=== PATIENT | female | born 1965 | race Hispanic/Latino ===

== ENCOUNTER 2023-10-21 06:47 | Day surgery (SDC) | payer OTHER ==
[2023-10-15 10:44] LABS: BASOPHILS # (AUTO) 0.03 K/uL (0.00-0.20); BASOPHILS % (AUTO) 0.5 % (0.0-5.0); EOSINOPHILS % (AUTO) 1.6 % (0.0-8.0); HEMATOCRIT 38.4 % (36-48); IMMATURE GRANULOCYTE ABSOLUTE 0.01 K/uL (0-1); LYMPHOCYTES # (AUTO) 1.6 K/uL (1.0-4.8); LYMPHOCYTES % (AUTO) 25.8 % (21.0-51.0); MEAN CORPUSCULAR HEMOGLOBIN 31.9 pg (27.0-33.0); MEAN CORPUSCULAR HGB CONC 33.6 g/dL (32.0-36.0); MEAN CORPUSCULAR VOLUME 94.8 fL (79-99); MONOCYTES # (AUTO) 0.3 K/uL (0.1-1.0); MONOCYTES % (AUTO) 4.2 % (3.0-13.0); NEUTROPHILS # (AUTO) 4.2 K/uL (1.8-7.7); NEUTROPHILS % (AUTO) 67.7 % (40.0-77.0); PLATELET COUNT (AUTO) 166 K/uL (130-400); RED BLOOD CELL COUNT(AUTO) 4.05 MIL/uL (4.00-5.50); RED CELL DISTRIBUTION WIDTH 12.5 % (11.0-15.5); WHITE BLOOD COUNT (AUTO) 6.1 K/uL (4.8-10.8)
[2023-10-15 10:53] LABS: CREATININE 0.7 mg/dL (0.5-1.0); POTASSIUM 4.6 mmol/L (3.5-5.1)
[2023-10-15 11:00] VITALS: BP 124/61; PULSE 65; RESP 16
[2023-10-15 13:52] LABS: APPEARANCE,URINE CLEAR (CLEAR); BILIRUBIN,URINE NEGATIVE (NEGATIVE); COLOR,URINE YELLOW (YELLOW); GLUCOSE, URINE (UA) NEGATIVE (NEGATIVE); KETONES,URINE NEGATIVE (NEGATIVE); LEUKOCYTE ESTERASE ,URINE 500 Leu/uL (NEGATIVE); NITRATE,URINE NEGATIVE (NEGATIVE); OCCULT BLOOD,URINE NEGATIVE (NEGATIVE); PROTEIN,URINE NEGATIVE (NEGATIVE); UROBILINOGEN,URINE 0.2 mg/dL (0.2-1.0)
[2023-10-15 13:53] LABS: ADD UA MICROSCOPIC YES
[2023-10-15 13:54] LABS: BACTERIA,URINE MANY /HPF (None Seen); MUCUS,URINE RARE LPF (None Seen); SQUAMOUS EPITHELIAL CELL,UR FEW /HPF (0-2)
[~2023-10-21] VITALS: Ht 165.1 cm; Wt 105.2 kg
[2023-10-21] VITALS (17 sets, daily range): BP systolic 121–149; BP diastolic 60–79; PULSE 49–69; RESP 15–19
[~2023-10-21 06:47] MED LIST: FISH1CAP63 PO; LOSA50TA64 PO; MULT-1258 PO
[2023-10-21] MEDS: LACTATED RINGERS 1000ML 1,000 ML IV ONE (07:37)
[2023-10-21] MEDS: CEFTRIAXONE 1G VIAL ONE (07:37)
[2023-10-21] MEDS ORDERED: LEVO750T68 PO (07:39)
[2023-10-21] MEDS ORDERED: LIDOCAINE PF 100MG/5ML (2%) SYRINGE 5ML ONE (07:51)
[2023-10-21] MEDS ORDERED: ONDANSETRON 4MG INJ ONE (07:51)
[2023-10-21] MEDS ORDERED: ROCURONIUM BROMIDE 10MG/1ML 5ML VL ONE (07:51)
[2023-10-21] MEDS ORDERED: PROPOFOL 10 MG/ML 20ML VIAL IV ONE (07:52)
[2023-10-21] MEDS ORDERED: FENTANYL CITRATE PF 50 MCG/1 ML 2ML VIAL ONE ×2 (07:52→09:08)
[2023-10-21] MEDS ORDERED: MIDAZOLAM HCL 1 MG/ML 2ML VIAL ONE (07:52)
[2023-10-21] MEDS ORDERED: KETAMINE 50MG/ML SYRINGE 50 MG/ML DISP.SYRIN ONE (08:00)
[2023-10-21] MEDS: CEFTRIAXONE 1G VIAL IVPB ONE (08:16)
[2023-10-21] MEDS ORDERED: DEXAMETHASONE SOD PHOSPHATE 10MG/ML 1ML VIAL ONE (09:06)
[2023-10-21] MEDS ORDERED: GLYCOPYRROLATE 0.2 MG/ML 5 ML VIAL ONE (09:06)
[2023-10-21] MEDS ORDERED: NEOSTIGMINE METHYLSULFATE 1MG/ML IV ONE (09:06)
[2023-10-21] MEDS ORDERED: KETOROLAC 30MG VIAL (30MG/ML) ONE (09:07)
[2023-10-21] MEDS ORDERED: IOHEXOL-350 50ML VIAL IV ONE (09:11)
== END 2023-10-21 10:45 | disposition home or self-care (01) ==
LOC: DAH 06:47
PROVIDERS: ATTEND Urology
DX: N20.1 Calculus of ureter (principal); I10 Essential (primary) hypertension; E66.01 Morbid (severe) obesity due to excess calories; Z88.0 Allergy status to penicillin
CPT/HCPCS: 80048; 84703 ×2; 85025; 87086; 81001; 36415 ×2; 74018; 71045; 93005; 52332; 52351; 74420; A6260; A4663; J7030; A4354; C1758; C2617; J7120; J3010 ×2; J1100; J3490 ×2; J2001; J0696 ×2; J2250; J2704; J2405; J1885; J2710; Q9967; A4358; A4930; A4215; A4223; A4213; A4222; A4221; C1769; A4600

== ENCOUNTER 2023-11-04 06:45 | Day surgery (SDC) | payer OTHER ==
[2023-11-02 09:30] VITALS: BP 136/66; PULSE 67; RESP 16
[2023-11-02 09:36] LABS: BASOPHILS # (AUTO) 0.03 K/uL (0.00-0.20); BASOPHILS % (AUTO) 0.5 % (0.0-5.0); EOSINOPHILS # (AUTO) 0.23 K/uL (0.00-0.70); EOSINOPHILS % (AUTO) 3.9 % (0.0-8.0); HEMATOCRIT 36.7 % (36-48); IMMATURE GRANULOCYTE ABSOLUTE 0.02 K/uL (0-1); LYMPHOCYTES # (AUTO) 1.9 K/uL (1.0-4.8); LYMPHOCYTES % (AUTO) 31.8 % (21.0-51.0); MEAN CORPUSCULAR HEMOGLOBIN 31.3 pg (27.0-33.0); MEAN CORPUSCULAR HGB CONC 33.2 g/dL (32.0-36.0); MEAN CORPUSCULAR VOLUME 94.1 fL (79-99); MONOCYTES # (AUTO) 0.3 K/uL (0.1-1.0); MONOCYTES % (AUTO) 5.7 % (3.0-13.0); NEUTROPHILS # (AUTO) 3.5 K/uL (1.8-7.7); NEUTROPHILS % (AUTO) 57.8 % (40.0-77.0); PLATELET COUNT (AUTO) 166 K/uL (130-400); RED CELL DISTRIBUTION WIDTH 12.7 % (11.0-15.5)
[2023-11-02 10:14] LABS: APPEARANCE,URINE CLEAR (CLEAR); BILIRUBIN,URINE NEGATIVE (NEGATIVE); COLOR,URINE LIGHT-YELLOW (YELLOW); GLUCOSE, URINE (UA) NEGATIVE (NEGATIVE); KETONES,URINE NEGATIVE (NEGATIVE); LEUKOCYTE ESTERASE ,URINE 250 Leu/uL (NEGATIVE); NITRATE,URINE NEGATIVE (NEGATIVE); OCCULT BLOOD,URINE LARGE (NEGATIVE); PROTEIN,URINE NEGATIVE (NEGATIVE); UROBILINOGEN,URINE 0.2 mg/dL (0.2-1.0)
[2023-11-02 10:15] LABS: ADD UA MICROSCOPIC YES
[2023-11-02 10:19] LABS: MUCUS,URINE RARE LPF (None Seen); SQUAMOUS EPITHELIAL CELL,UR FEW /HPF (0-2)
[2023-11-04] VITALS (14 sets, daily range): BP systolic 111–137; BP diastolic 50–61; PULSE 48–66; RESP 14–17
[~2023-11-04] VITALS: Ht 165.1 cm; Wt 107.1 kg
[~2023-11-04 06:45] MED LIST changes: -FISH1CAP63 PO; +TAMS-1 PO
[2023-11-04] MEDS: CEFTRIAXONE 1G VIAL ONE (08:05)
[2023-11-04] MEDS: LACTATED RINGERS 1000ML 1,000 ML IV ONE (08:05)
[2023-11-04] MEDS: IOHEXOL-350 50ML VIAL IV ONE (09:15)
[2023-11-04] MEDS ORDERED: PHENYLEPHRINE HCL 10 MG/ML 1ML VIAL IV ONE (09:22)
[2023-11-04] MEDS ORDERED: KETOROLAC 30MG VIAL (30MG/ML) ONE (09:28)
== END 2023-11-04 12:40 | disposition home or self-care (01) ==
LOC: DAH 06:45
PROVIDERS: ATTEND Urology
DX: N20.2 Calculus of kidney with calculus of ureter (principal); I10 Essential (primary) hypertension
CPT/HCPCS: 84703; 85025; 87086; 81001; 36415 ×2; 74018; 52356; 82360; 74420; A6260; A4663; A6207; A4354; C1758; C1894; C2617; J7120; J0696; J1885; J2371; Q9967; A4358; C1769; A4930; A4215; A4223; A4222; A4221; A4600